=== PATIENT | male | born 1970 | race Caucasian/White ===

== ENCOUNTER → 2021-03-18 | Outpatient (CLI) ==
[~2021-03-18] MED LIST: ATOR1TAB21 PO; D-50TAB PO; ECOT81TA5 PO; ETAN50PE SC; FLUT15.819; FOLI0.4T5 PO; HYDR200T3 PO; LASI20TA3 PO; LEVO75TA4 PO; LEVOTAB10 PO; MELO10CA2 PO; METH2.5T48 PO; PREG100CA PO; ROSU40TA4 PO
== END ==
LOC: M LABSMTC 10:32
PROVIDERS: ATTEND Anesthesiology
DX: Z01.812 Encounter for preprocedural laboratory examination (principal); Z20.822 Contact with and (suspected) exposure to COVID-19

== ENCOUNTER 2021-03-23 08:13 | Day surgery (SDC) | payer OTHER ==
[~2021-03-23] VITALS: Ht 177.8 cm; Wt 95.2 kg
[~2021-03-23 08:13] MED LIST changes: +NS 1,000 ML IV ONE
[2021-03-23] MEDS ORDERED: LIDOCAINE 2% 100MG/5ML SDV (FOR ANES.) As Ordered ONE (09:15)
[2021-03-23] MEDS ORDERED: propofoL 200 MG/20 ML VIAL As Ordered ONE (09:15)
--- NOTE | 2021-03-23 09:43 | ROOR ---
Patient Name: Luis Eduardo Nelson Procedure Date: 03/23/2021 9:25 AM Date of : 1970 Age: 50 Room: [facility] Gender: Male Note Status: Finalized Procedure: Total Colonoscopy to Cecum Indications: Screening for colorectal malignant neoplasm Providers: Jesus Mendoza MD Referring MD: Tobias Mckay MD Requesting Provider: Medicines: Monitored Anesthesia Care Complications: No immediate complications. Procedure: Pre-Anesthesia Assessment: - The heart rate, respiratory rate, oxygen saturations, blood pressure, adequacy of pulmonary ventilation, and response to care were monitored throughout the procedure. The Colonoscope was introduced through the anus and advanced to the cecum, identified by appendiceal orifice and ileocecal valve. The colonoscopy was performed without difficulty. The patient tolerated the procedure well. The quality of the bowel preparation was excellent. Findings: The perianal and digital rectal examinations were normal. No other significant abnormalities were identified in a careful examination of the remainder of the colon. The exam was otherwise without abnormality on direct and retroflexion views. Impression: - The examination was otherwise normal on direct and retroflexion views. - No specimens collected. - The exam was otherwise normal to the cecum. Recommendation: - Patient has a contact number available for emergencies. The signs and symptoms of potential delayed complications were discussed with the patient. Return to normal activities tomorrow. Written discharge instructions were provided to the patient. - High fiber diet. - Discharge patient to home. - Continue present medications. - Repeat colonoscopy in 10 years for screening purposes. - Return to referring physician. - The findings and recommendations were discussed with the patient's family. Procedure Code(s): --- Professional --- 87499, Colonoscopy, flexible; diagnostic, including collection of specimen(s) by brushing or washing, when performed (separate procedure) Diagnosis Code(s): --- Professional --- Z12.11, Encounter for screening for malignant neoplasm of colon CPT copyright 2019 [employer]. All rights reserved. The codes documented in this report are preliminary and upon braille coder review may be revised to meet current compliance requirements. Jesus Mendoza MD Jesus Mendoza MD 03/23/2021 9:43:06 AM Electronically signed by Jesus Mendoza MD Number of Addenda: 0 Note Initiated On: 03/23/2021 9:25 AM Estimated Blood Loss: Estimated blood loss: none.
[2021-03-23 10:01] VITALS: BP 130/84
== END 2021-03-23 10:02 | disposition home or self-care (01) ==
LOC: M OPP 08:13
PROVIDERS: ATTEND Internal Medicine Gastroenterology
DX: Z12.11 Encounter for screening for malignant neoplasm of colon (principal); Z79.82 Long term (current) use of aspirin; Z79.899 Other long term (current) drug therapy

== ENCOUNTER → 2022-02-21 | Outpatient (REF) | payer OTHER ==
[~2022-02-21] MED LIST changes: -NS 1,000 ML IV ONE
== END ==
LOC: M SFHCDERM 17:15
PROVIDERS: ATTEND Nurse Practitioner Family
DX: D48.9 Neoplasm of uncertain behavior, unspecified (principal)

== ENCOUNTER → 2023-10-30 | Outpatient (REF) | payer OTHER ==
[~2023-10-30] MED LIST changes: -HYDR200T3 PO; +HYDR200T46 PO
[2023-10-30 13:38] LABS: AMORPHOUS SEDIMENT MODERATE (NEGATIVE); APPEARANCE, URINE TURBID (CLEAR); BACTERIA, URINE AUTO NEGATIVE (NEGATIVE); BILIRUBIN, URINE AUTO NEGATIVE (NEGATIVE); BLOOD, URINE BLOOD NEGATIVE (NEGATIVE); COLOR, URINE YELLOW (YELLOW); GLUCOSE, URINE (UA) AUTO NEGATIVE (NEGATIVE); KETONE, URINE AUTO NEGATIVE (NEGATIVE); LEUKOCYTE ESTERASE, URINE AUTO NEGATIVE (NEGATIVE); MUCUS, URINE LARGE (NEGATIVE); NITRITE, URINE AUTO NEGATIVE (NEGATIVE); PROTEIN, URINE AUTO 1+ mg/dL (NEGATIVE); RBC, URINE AUTO 0 /HPF (0-3); SPECIFIC GRAVITY URINE AUTO 1.028 (1.002-1.035); SQUAMOUS EPITHELIAL CELL UR AU 0 /HPF (0-6); UROBILINOGEN, URINE AUTO 0.2 mg/dL (0.0-2.0); WBC, URINE AUTO 0 /HPF (0-3)
== END ==
LOC: M SMT 12:55
PROVIDERS: ATTEND Nurse Practitioner Family
DX: R35.0 Frequency of micturition (principal)